=== PATIENT | male | born 1950 | race Caucasian/White ===

== ENCOUNTER 2017-10-17 05:41 | Inpatient (IN) ==
[2017-10-17] MEDS ORDERED: Ketamine Inj 50 MG/5 ML Syringe IV.PUSH ONE (06:14)
[2017-10-17] MEDS ORDERED: fentaNYL Citrate Inj 250 MCG/5 ML Ampul ONE (06:15)
[2017-10-17] MEDS ORDERED: fentaNYL Citrate Inj 100 MCG/2 ML Ampul ONE (06:15)
[2017-10-17] MEDS ORDERED: Famotidine PF Inj 20 MG/2 ML Vial ONE (06:16)
[2017-10-17] MEDS ORDERED: Sodium Chlor 0.9% Inj 40 ML, Bupivacaine Liposo PF 1.3% Inj 20 ML P-ARTICULR SCH ×2 (06:30)
[2017-10-17] MEDS ORDERED: Chlorhexidine 4% Topical 120 APPLIC/120 ML Bottle TOPICAL SCH (06:30)
[2017-10-17] MEDS ORDERED: Bisacodyl 10 MG Supp RECTAL PRN (06:37)
[2017-10-17] MEDS ORDERED: Post-op Orders (for Pharmacy) OTHER STA (06:37)
[2017-10-17] MEDS ORDERED: HYDROmorphone PF Inj 2 MG/ML Vial IV.PUSH PRN (06:37)
[2017-10-17] MEDS ORDERED: Dexamethasone Inj 20 MG/5 ML Vial IV.PUSH ONE (06:39)
[2017-10-17] MEDS ORDERED: ceFAZolin 2 GM Premix Inj 2 GM/100 ML BAG IV.SIG ONE (06:47)
[2017-10-17] MEDS ORDERED: SODIUM CHLOR 0.9% IV.SIG SCH (07:00)
[2017-10-17] MEDS ORDERED: ceFAZolin 2 GM Premix Inj 2 GM/50 ML PIGGYBACK IV.SIG SCH (07:00)
[2017-10-17] MEDS ORDERED: Dexamethasone Inj 20 MG/5 ML Vial IV.PUSH SCH (07:00)
[2017-10-17] MEDS ORDERED: ceFAZolin Inj 2,000 MG in Sodium Chlor 0.9% Inj 100 ML IV.SIG SCH (07:00)
[2017-10-17] MEDS ORDERED: Vancomycin Inj 1,000 MG in Sodium Chlor 0.9% Inj 250 ML IV.SIG SCH (07:00)
[2017-10-17] MEDS ORDERED: Tranexamic Acid Inj 3,000 MG in Sodium Chlor 0.9% Inj 100 ML IV.SIG SCH (07:00)
[2017-10-17] MEDS ORDERED: TRANEXAMIC ACID IV.SIG SCH (07:00)
[2017-10-17] MEDS ORDERED: Chlorhexidine Gluconate 2% 1 Pack (2 Cloths) TOPICAL SCH (08:00)
[2017-10-17] MEDS ORDERED: Metoprolol Tartrate 25 MG Tablet PO SCH (08:00)
[2017-10-17] MEDS ORDERED: Sodium Chlor 0.9% Inj 500 ML IV.SIG SCH (08:00)
--- NOTE | 2017-10-17 10:07 | XR ---
EXAM DATE: 10/17/2017 10:01 AM EDT AGE/SEX: 67 years / Male INDICATIONS: Total right hip replacement. CLINICAL DATA: This is the patient's initial encounter. Patient reports that signs and symptoms have been present for 1 day and indicates a pain score of Nonresponsive. MEDICAL/SURGICAL HISTORY: Non-responsive. Non-responsive. COMPARISON: No prior exams available for comparison. FINDINGS: The patient is status post a total hip arthroplasty. Prosthesis is well-seated. Alignment is anatomic . A fracture is not appreciated. CONCLUSION: Anatomic alignment. Dayne Bustos MD FACR Electronically signed by: Dayne Bustos MD 10/17/2017 10:05 AM EDT
[2017-10-17] MEDS ORDERED: *morphine SULFATE 10 MG/ML PERIprocedure ONLY ONE (10:27)
[2017-10-17] MEDS ORDERED: *Meperidine Inj 25 MG/ML Vial PERIprocedural Use ONLY ONE (11:24)
[2017-10-17] MEDS ORDERED: Neostigmine Inj 5 MG/5 ML Syringe IV.PUSH ONE (12:00)
[2017-10-17] MEDS ORDERED: Glycopyrrolate Inj 1 MG/5 ML Syringe IV.PUSH ONE (12:00)
[2017-10-17] MEDS ORDERED: Lidocaine PF 1% Inj 5 ML Syringe INFILTRATN ONE (12:00)
[2017-10-17] MEDS ORDERED: Esmolol Bolus Inj 100 MG/10 ML Vial IV.PUSH ONE (12:00)
[2017-10-17] MEDS ORDERED: Phenylephrine/NS 1000 MCG/10ML Syringe IV.PUSH ONE (12:00)
--- NOTE | 2017-10-17 12:05 | MP ---
cc: Tacos Dove MD DATE OF OPERATION: 10/17/2017 PREOPERATIVE DIAGNOSIS: Right hip osteoarthritis. POSTOPERATIVE DIAGNOSIS: Right hip osteoarthritis. PROCEDURE PERFORMED: Right total hip arthroplasty. SURGEON: Tacos Dove MD MOBILE EQUIPMENT OPERATOR: MALINDA Muñoz. ANESTHESIA: General. ESTIMATED BLOOD LOSS: 200 mL COMPLICATIONS: None. IMPLANTS USED: DePuy Corail size 14 press-fit high offset femoral stem, size 58 solid Bryant Gription cup, size 58 mm highly cross-linked +4 high offset 10 degree liner, size 58 ceramic head, +12 neck. JUSTIFICATION: The patient is a 67-year-old male with a history of severe osteoarthritis involving the right hip joint. He has severe daily pain with standing, walking, ambulation, pain at rest. His pain interferes with activities of daily living, and he has failed greater than 3 months of nonoperative conservative treatment to include medication therapy, injections, ambulatory assist aids, home exercise program, activity modification, weight loss attempts. X-rays of the right hip reveal severe osteoarthritis with [id number] joint space narrowing, subchondral sclerosis, subchondral cyst, osteophyte formation, and subluxation. The patient was counseled on the risks, benefits, and alternatives to a total hip arthroplasty. The risks were discussed, which include but are not limited to anesthesia, bleeding, infection, damage to nerves and blood vessels, fracture, dislocation, leg length discrepancy, blood clots, pulmonary embolism, and even . The patient's pain is severe. He understood the benefits and the risks, and he wished to proceed with surgery. PROCEDURE IN DETAIL: Written consent was obtained. The patient was identified by name, taken to the operating room, and placed supine on the operating room table. General anesthesia was administered, as well as 2 grams of IV Ancef and 1 gram of IV vancomycin. The right hip and right lower extremity were prepped and draped using isopropyl alcohol, Hibiclens solution, and ChloraPrep solution. After a timeout was performed, a longitudinal incision was made over the anterior aspect of the right hip, the fascial layer was incised, and dissection was carried over the tensor fascia hardeep, beneath rectus femoris to allow exposure of the anterior hip capsule. Capsulotomy incision was performed. An oscillating saw was used to perform a femoral neck cut. The osteoarthritic femoral head and neck component was removed. A 10-blade scalpel was used to excise the labrum. Sequential reaming began at size 53 and was carried through to size 58. Subsequently, a solid Bryant 58 mm cup was implanted at approximately 45 degrees of abduction and 10 degrees of anteversion. There was good purchase and fixation after insertion of the cup. A screw hole eliminator was placed, followed by a neutral highly cross-linked polyethylene liner. The liner was then packed in place and tested for stability. Attention was turned to the femur where the capsule was released off the inner surface of the greater trochanter. The leg was externally rotated, extended, and adducted to allow for further exposure. A box-cutting osteotome was used to gain entrance into the intramedullary canal of the femur, followed by a canal finder and sequential broaching up to size 14. A calcar planer was used to plane the calcar. Trial head and neck combinations were evaluated, and with multiple trials including a high offset size 14 stem, the hip showed instability where the leg was externally rotated approximately 60 degrees and extended approximately 30 degrees. The hip wanted to sublux and dislocate along a superior and lateral direction. At this point, the broach was removed. Attention was turned back to the cup, where a drill hole was made in the cup, followed by a screw to remove the neutral liner. At this point, a +4 high offset 10 degree highly cross-linked polyethylene liner was implanted with the 10-degree lip placed along a superolateral direction to provide further stability. The new liner was then packed in place and tested for stability. At this point, trunk muscles were evaluated and there was improved stability with the size 14 stem, +12 neck. Fluoroscopic imaging showed appropriate implantation of the components with increased offset and stability was improved, where the leg could be externally rotated 60 degrees and extended down to approximately 55 degrees before the hip started to show signs of instability. Trunk muscles were evaluated. The hip was thoroughly irrigated with and antibiotic impregnated solution. Final components implanted and identical findings found upon clinical examination. At this point, the fascial layer was closed with #1 Vicryl suture, the subcutaneous layer with 2-0 Vicryl suture, and the skin was closed with Dermabond. Sterile dressings were applied. The patient tolerated the procedure well. No intraoperative complications noted. Gus Alexander, Physician Staffing Recruiter, Certified, was present during the procedure to include the patient positioning and the procedure itself. The medical necessity of a physician engineer third assistant was indicated in this case due to the complexity of the procedure. He assisted with appropriate manipulation of the leg and also retraction of muscle, tendon, bone, and neurovascular structures. He assisted with preparation of bone and also implantation of the prosthetic replacement. MD GALINDO Turk/[email or web address]/[email or web address] , 09:59 AM , 10:09 AM
--- NOTE | 2017-10-17 12:57 | XR ---
EXAM DATE: 10/17/2017 12:27 PM EDT AGE/SEX: 67 years / Male INDICATIONS: Post-op right hip. CLINICAL DATA: This is the patient's initial encounter. Patient reports that signs and symptoms have been present for 1 day and indicates a pain score of Nonresponsive. MEDICAL/SURGICAL HISTORY: None. . Left Hip Replacement. COMPARISON: [facility] [place] [place] ONLY, 10/06/2011. . FINDINGS: Stable left hip arthroplasty in place. Interval placement of right hip arthroplasty. Arthroplasty com ponents are in anatomic alignment and are intact. No significant bony fracture. Remainder of exam is unchanged. CONCLUSION: 1. Status post right hip arthroplasty in anatomic alignment without acute fracture. Electronically signed by: Rico Kaur MD 10/17/2017 12:55 PM EDT
[2017-10-17] MEDS: Levothyroxine 150 MCG Tablet PO SCH (13:29)
[2017-10-17] MEDS: Multivitamin/Minerals Therapeutic Tablet PO SCH ×2 (13:29→21:42)
[2017-10-17] MEDS: ceFAZolin Inj 2,000 MG in Sodium Chlor 0.9% Inj 100 ML IV.SIG SCH ×2 (13:29→23:07)
[2017-10-17] MEDS: Senna/Docusate Sodium 8.6/50 MG Tablet PO SCH ×2 (13:29→21:42)
--- NOTE | 2017-10-17 17:40 | P.CON ---
History of Present Illness Service: [facility] Consult date: 10/17/17 Requesting Physician: Tacos Dove Reason for Consult: Medical management Primary Care Provider: Artur Loyd History of Present Illness: This is a pleasant 67-year-old white male with significant past medical history of osteoarthritis, hypertension, hyperlipidemia. He has prior history of left total hip replacement. Patient was admitted for elective surgery and underwent right total hip arthroplasty. Patient tolerated procedure well. He is now evaluated, he sitting up in a chair. Pain is well controlled. Denies any chest pain, shortness of breath, no recent fever, no chills. Received cardiac clearance before procedure, had EKG and echo that were both abnormal. Denies any history of coronary artery disease. Hospitalist services are requested for medical management. Review of Systems All other systems reviewed negative except as stated in HPI [facility] - History History Provided By: Patient - Medical History Medical History: Medical History (Last Reviewed 10/17/17 @ 17:33 by CHRISTINA Nguyen) Left rotator cuff tear arthropathy Arthritis BPH (benign prostatic hyperplasia) Hepatitis C High cholesterol Hypertension Injury of left thumb Right hip pain Right tibial fracture Seasonal allergies Thyroid disease Wears dentures - Surgical History Surgical History: Surgical History (Last Updated 10/17/17 @ 17:34 by CHRISTINA Nguyen) Hx of rotator cuff surgery History of total left hip replacement - Family History Family History: Family History (Last Updated 10/17/17 @ 17:34 by CHRISTINA Nguyen) Mother Family history of colon cancer Father CAD (coronary artery disease) - Tobacco History Second Hand Smoke Exposure: No Smoking Status: Former smoker Tobacco Type: Cigarettes - Alcohol History How Often Do You Have a Drink Containing Alcohol: 2 to 3 times a week - Substance Use History Substance History: No History of Abuse - Travel History Recent Travel in the [place] Within the Last 8 Weeks: No Recent Travel Out of the Country Within the Last 8 Weeks: No Medications and Allergies Active Medications: Active Medications Hydrocodone Bitart/Acetaminophen ([place] 7.5/325) 1 tab PO Q4H PRN PRN Reason: PAIN LESS THAN 5 ON SCALE Hydrocodone Bitart/Acetaminophen ([place]ka 7.5/325) 2 tab PO Q6H PRN PRN Reason: PAIN SCALE 5 TO 10 Last Admin: 10/17/17 15:18 Dose: 2 tab Al Hydroxide/Mg Hydroxide (Milk Of Magnesia Liq) 30 ml PO BID PRN PRN Reason: Mild Constipation Aspirin (Aspirin Chew) 81 mg PO BID [facility] Last Admin: 10/17/17 13:20 Dose: 81 mg Bisacodyl (Dulcolax Supp) 10 mg RECTAL DAILY PRN PRN Reason: SEVERE CONSITIPATION Chlorhexidine Gluconate (Hibiclens 4% Topical) 1 applicatio TOPICAL ONCE [facility] Stop: 10/21/17 06:29 Last Admin: 10/17/17 06:30 Dose: 1 applicatio Chlorhexidine Gluconate (Chlorhexidine 2% Cloth) 3 pack TOPICAL BAND EDGER [facility] Stop: 10/20/17 07:54 Sodium Chloride 40 ml/ (Bupivacaine Liposome 20 ml) 0 ml P-ARTICULR ONCE [facility] Last Admin: 10/17/17 09:06 Dose: 60 bag Dexamethasone Sodium Phosphate (Decadron Inj) 10 mg IV.PUSH [facility] Stop: 10/17/17 23:59 Last Admin: 10/17/17 06:42 Dose: 10 mg Diphenhydramine HCl (Benadryl) 25 mg PO Q6H PRN PRN Reason: ITCHING Hydromorphone HCl (Dilaudid Pf Inj) 1 mg IV.PUSH Q3H PRN PRN Reason: BREAKTHROUGH PAIN Vancomycin HCl 1,000 mg/ (Sodium Chloride) 250 mls @ 250 mls/hr IV.SIG [facility] EDGER [facility] Stop: 10/20/17 06:28 Last Infusion: 10/17/17 08:26 Dose: Infused Tranexamic Acid 3,000 mg/ (Sodium Chloride) 130 mls @ 0 mls/hr IV.SIG B[facility] EDGER [facility] Stop: 10/17/17 23:59 Last Infusion: 10/17/17 09:08 Dose: Infused Cefazolin Sodium 2,000 mg/ (Sodium Chloride) 100 mls @ 100 mls/hr IV.SIG B[facility] EDGER [facility] Stop: 10/21/17 06:59 Last Infusion: 10/17/17 15:17 Dose: 100 mls/hr Cefazolin Sodium 2,000 mg/ (Sodium Chloride) 120 mls @ 240 mls/hr IV.SIG Q6H [facility] Stop: 10/18/17 01:29 Last Infusion: 10/17/17 15:04 Dose: 240 mls/hr Lactated Ringer's (Lr 1000 Ml Inj) 1,000 mls @ 80 mls/hr IV.CONT .[id number] [facility] Last Admin: 10/17/17 10:15 Dose: 80 mls/hr Lactated Ringer's (Lr 1000 Ml Inj) 1,000 mls @ 30 mls/hr IV.SIG .Q24H [facility] Stop: 10/20/17 07:54 Last Admin: 10/17/17 06:30 Dose: 30 mls/hr Sodium Chloride (Ns Inj) 500 mls @ 30 mls/hr IV.SIG .Q10H [facility] Stop: 10/20/17 07:54 Levothyroxine Sodium (Synthroid) 150 mcg PO DAILY [facility] Last Admin: 10/17/17 13:29 Dose: Not Given Losartan Potassium (Cozaar) 50 mg PO DAILY [facility] Last Admin: 10/17/17 13:28 Dose: Not Given Metoprolol Tartrate (Lopressor) 25 mg PO BAND EDGER [facility] Stop: 10/20/17 07:54 Miscellaneous Information ([facility] Information) 1 each OTHER UNSCH PRN PRN Reason: SEE LABEL COMMENTS Stop: 10/18/17 10:13 Multivitamins/Minerals (Theragran-M) 1 tab PO BID [facility] Stop: 12/16/17 08:59 Last Admin: 10/17/17 13:29 Dose: Not Given Ondansetron HCl (Zofran Inj) 4 mg IV.PUSH Q6H PRN PRN Reason: NAUSEA OR VOMITING Povidone Iodine (Betadine 7.5% Scrub) 1 applicatio TOPICAL ONCE [facility] Stop: 10/21/17 06:59 Last Admin: 10/17/17 06:45 Dose: 1 applicatio Povidone Iodine (Betadine 5% Antisepsis Kit) 1 applicatio EACH NARE B[facility] EDGER [facility] Stop: 10/20/17 07:54 Pravastatin Sodium (Pravachol) 40 mg PO DAILY [facility] Last Admin: 10/17/17 13:29 Dose: Not Given Senna/Docusate Sodium (Mona-Colace) 1 tab PO BID [facility] Last Admin: 10/17/17 13:29 Dose: Not Given Sennosides (Senokot) 17.2 mg PO BID PRN PRN Reason: Moderate Constipation Sodium Chloride (Ns Flush) 2 ml IV.FLUSH BID [facility] Last Admin: 10/17/17 13:28 Dose: Not Given Sodium Chloride (Ns Flush) 2 ml IV.FLUSH PRN PRN PRN Reason: FLUSH AFTER USING IV ACCESS Tamsulosin HCl (Flomax) 0.4 mg PO BID [facility] Last Admin: 10/17/17 13:28 Dose: Not Given Zolpidem Tartrate (Ambien) 5 mg PO HS PRN PRN Reason: INSOMNIA Allergies Allergy/AdvReac Type Severity Reaction Status Date / Time strawberry Allergy Rash Verified 10/17/17 06:58 cortisone AdvReac Severe Rash Verified 10/17/17 06:58 Home Medications Medication Instructions Recorded Confirmed Type fluticasone 1 spray INTRANASAL DAILY 10/03/17 10/17/17 History hydrocodone-acetaminophen 1 tab PO Q4-6H PRN 10/03/17 10/17/17 History levothyroxine [Synthroid] 150 mcg PO DAILY 10/03/17 10/17/17 History pravastatin 40 mg PO DAILY 10/03/17 10/17/17 History tamsulosin 0.4 mg PO BID 10/03/17 10/17/17 History losartan 50 mg PO DAILY 10/17/17 10/17/17 History Physical Exam Vital signs: Vital Signs 10/17/17 06:36 10/17/17 10:15 10/17/17 10:30 Temperature 97.2 F L 98.7 F Pulse Rate 73 96 H 84 Respiratory Rate 18 12 17 Blood Pressure 139/80 93/51 L 125/67 Pulse Oximetry 97 97 99 10/17/17 10:45 10/17/17 11:00 10/17/17 11:15 Temperature Pulse Rate 82 83 80 Respiratory Rate 20 16 15 Blood Pressure 115/59 L 155/55 H 106/58 L Pulse Oximetry 98 96 98 10/17/17 11:30 10/17/17 12:00 10/17/17 13:00 Temperature 97.9 F Pulse Rate 88 83 88 Respiratory Rate 15 12 18 Blood Pressure 112/64 118/62 117/66 Pulse Oximetry 97 98 97 10/17/17 14:05 10/17/17 15:29 10/17/17 16:00 Temperature 97.3 F L 97.4 F L Pulse Rate 95 H 95 H Respiratory Rate 16 16 Blood Pressure 105/57 L 105/57 L Pulse Oximetry 96 94 L 96 Intake & Output 10/16/17 10/17/17 10/17/17 18:59 06:59 18:59 Intake Total 3222.29 / 3222.29 Output Total 700 / 700 Balance 2522.29 / 2522.29 Weight 148.6 kg Intake: IV 622.29 / 622.29 Cyklokapron Inj 3,000 MG In NS 252.29 / 252.29 Inj 100 ML @ As Directed IV.SIG [facility]GER [facility] Rx#:[id number] Vancomycin Inj 1,000 MG In NS 250 / 250 Inj 250 ML @ 250 mls/hr IV.SIG B[facility] EDGER [facility] Rx#:[id number] Ancef 2 GM Premix Inj 2 gm In 100 / 100 100 ml @ 0 mls/hr IV.SIG .[facility] Rx#:[id number] Ancef Inj 2,000 MG In NS Inj 0 / 0 100 ML @ 100 mls/hr IV.SIG B[facility] EDGER [facility] Rx#:[id number] Ancef Inj 2,000 MG In NS Inj 20 / 20 100 ML @ 240 mls/hr IV.SIG Q6H [facility] Rx#:[id number] Anesthesia Amount 2600 / 2600 Output: Urine 400 / 400 Estimated Blood Loss 300 / 300 Other: # Voids 1 Weight On Admission 148.6 kg Narrative: GENERAL: Well-nourished, well-developed patient in no apparent distress. SKIN: Warm and dry. HEAD: Atraumatic. Normocephalic. EYES: Pupils equal and round. No scleral icterus. No injection or drainage. ENT: No nasal bleeding or discharge. Mucous membranes pink and moist. NECK: Trachea midline. No JVD. CARDIOVASCULAR: Regular rate and rhythm. RESPIRATORY: No accessory muscle use. Clear to auscultation. Breath sounds equal bilaterally. GASTROINTESTINAL: Abdomen soft, non-tender, nondistended. Hepatic and splenic margins not palpable. MUSCULOSKELETAL: Right hip with dressing intact. Intact sensation to the right foot, able to dorsiflex. Bilateral pedal pulses 2+. There is scarring deformity to her right tibia from previous surgery. NEUROLOGICAL: Awake and alert x 3. No obvious cranial nerve deficits. Motor grossly within normal limits. Five out of 5 muscle strength in the arms and legs. Normal speech. PSYCHIATRIC: Appropriate mood and affect; insight and judgment normal. Assessment and Plan - Assessment (1) Status post right hip replacement Code(s): Z96.641 - Presence of right artificial hip joint Status: Acute (2) Osteoarthritis Code(s): M19.90 - Unspecified osteoarthritis, unspecified site Status: Chronic (3) Hypertension Code(s): I10 - Essential (primary) hypertension Status: Chronic (4) Hyperlipidemia Code(s): E78.5 - Hyperlipidemia, unspecified Status: Chronic (5) BPH (benign prostatic hyperplasia) Code(s): N40.0 - Benign prostatic hyperplasia without lower urinary tract symptoms Status: Chronic - Plan 67-year-old male admitted for elective surgery, status post right total hip arthroplasty -Continue postoperative orthopedic care Continue with pain management Bowel regimen Aspirin and TISH hose for DVT prophylaxis Hypertension, well controlled Continue with Cozaar Hyperlipidemia Continue with pravastatin BPH Continue with Flomax -Monitor for urinary retention postop CBC and BMP in the morning Plan of care discussed with patient, RN and attending. Further management of the patient will be dependent on hospital course Thank you for this consultation (2) Osteoarthritis Qualifiers: Osteoarthritis location: hip Osteoarthritis type: unspecified Laterality: right Qualified Code(s): M16.11 - Unilateral primary osteoarthritis, right hip (3) Hypertension Qualifiers: Hypertension type: essential hypertension Qualified Code(s): I10 - Essential (primary) hypertension (4) Hyperlipidemia Qualifiers: Hyperlipidemia type: unspecified Qualified Code(s): E78.5 - Hyperlipidemia, unspecified (5) BPH (benign prostatic hyperplasia) Qualifiers: Lower urinary tract symptom presence: symptoms absent Qualified Code(s): N40.0 - Benign prostatic hyperplasia without lower urinary tract symptoms
[2017-10-17] MEDS ORDERED: Zolpidem Tartrate 5 MG Tablet PO PRN (21:00)
[2017-10-18] MEDS: ceFAZolin Inj 2,000 MG in Sodium Chlor 0.9% Inj 100 ML IV.SIG SCH (01:15)
[2017-10-18 06:23] LABS: Hematocrit 32.3 % (39.0-51.0); Hemoglobin 10.7 gm/dL (13.0-17.0); Mean Corpuscular Hemoglobin 30.8 pg (27.0-34.0); Mean Corpuscular Volume 93.1 fL (80.0-100.0); Mean Platelet Volume 8.6 fL (7.0-11.0); Platelet Count 168 th/mm3 (150-450); Red Blood Count 3.47 mil/mm3 (4.50-5.90); Red Cell Distribution Width 14.7 % (11.6-17.2); White Blood Count 7.1 th/mm3 (4.0-11.0)
[2017-10-18 06:53] LABS: Calcium 7.8 mg/dL (8.5-10.1); Carbon Dioxide 26.7 meq/L (21.0-32.0); Potassium 4.4 meq/L (3.5-5.1)
--- NOTE | 2017-10-18 07:18 | P.PNOP ---
Subjective Interval history: pain controlled. has been OOB. would like to go home. Physical Exam Vital signs: Vital Signs 10/17/17 10:15 10/17/17 10:30 10/17/17 10:45 Temperature 98.7 F Pulse Rate 96 H 84 82 Respiratory Rate 12 17 20 Blood Pressure 93/51 L 125/67 115/59 L Pulse Oximetry 97 99 98 10/17/17 11:00 10/17/17 11:15 10/17/17 11:30 Temperature Pulse Rate 83 80 88 Respiratory Rate 16 15 15 Blood Pressure 155/55 H 106/58 L 112/64 Pulse Oximetry 96 98 97 10/17/17 12:00 10/17/17 13:00 10/17/17 14:05 Temperature 97.9 F 97.3 F L Pulse Rate 83 88 95 H Respiratory Rate 12 18 16 Blood Pressure 118/62 117/66 105/57 L Pulse Oximetry 98 97 96 10/17/17 15:29 10/17/17 16:00 10/17/17 20:00 Temperature 97.4 F L 98.3 F Pulse Rate 95 H 83 Respiratory Rate 16 18 Blood Pressure 105/57 L 115/60 Pulse Oximetry 94 L 96 93 L Intake & Output 10/17/17 10/18/17 10/18/17 18:59 06:59 18:59 Intake Total 3322.29 / 3322.29 1170 / 1170 Output Total 700 / 700 1720 / 1720 Balance 2622.29 / 2622.29 -550 / -550 Intake: IV 722.29 / 722.29 100 / 100 Cyklokapron Inj 3,000 MG In NS 252.29 / 252.29 Inj 100 ML @ As Directed IV.SIG [facility] Rx#:[id number] Vancomycin Inj 1,000 MG In NS 250 / 250 Inj 250 ML @ 250 mls/hr IV.SIG [facility] Rx#:[id number] Ancef 2 GM Premix Inj 2 gm In 100 / 100 100 ml @ 0 mls/hr IV.SIG .[facility] Rx#:[id number] Ancef Inj 2,000 MG In NS Inj 0 / 0 0 / 0 100 ML @ 100 mls/hr IV.SIG [facility] Rx#:[id number] Ancef Inj 2,000 MG In NS Inj 120 / 120 100 / 100 100 ML @ 240 mls/hr IV.SIG Q6H [facility] Rx#:[id number] Oral 20 / 20 Oral Supplement 0 / 0 Tube Feeding 250 / 250 Anesthesia Amount 2600 / 2600 Other 800 / 800 Output: Urine 400 / 400 1700 / 1700 Emesis 20 / 20 Estimated Blood Loss 300 / 300 Other: # Voids 1 Narrative: in bed, nad dressing has mild bloody drainage on proximal portion ecchymosis R hip thigh soft neg homans nvi Results - Labs CBC & Chem 7: 10/18/17 05:14 10/18/17 05:14 Laboratory Results - last 24 hr 10/17/17 10/18/17 10/18/17 06:30 00:32 05:14 WBC RBC Hgb Hct MCV MCH MCHC RDW Plt Count MPV Sodium 140 Potassium 4.4 Chloride 104 Carbon Dioxide 26.7 Anion Gap 9 BUN 21 H Creatinine 0.92 Estimated GFR 83 L POC Glucose 111 H Random Glucose 120 H Calcium 7.8 L Blood Type A Positive Blood Type Recheck Required Antibody Screen Negative 10/18/17 05:14 WBC 7.1 RBC 3.47 L Hgb 10.7 L Hct 32.3 L MCV 93.1 MCH 30.8 MCHC 33.0 RDW 14.7 Plt Count 168 MPV 8.6 Sodium Potassium Chloride Carbon Dioxide Anion Gap BUN Creatinine Estimated GFR POC Glucose Random Glucose Calcium Blood Type Blood Type Recheck Antibody Screen - Imaging Impressions Hip X-Ray 10/17/17 00:00 CONCLUSION: Anatomic alignment. Dayne Bustos MD FACR Hip X-Ray 10/17/17 06:35 CONCLUSION: 1. Status post right hip arthroplasty in anatomic alignment without acute fracture. Assessment and Plan - Ortho Post Op Day # 1 - Assessment and Plan s/p R JUANIS - anterior approach wbat - anterior hip precautions ok to maintain dressing unless saturated asa 81 ice to thigh d/c planning home with hhc and pt - cleared today if does well in PT f/up dr. ray 2 weeks
--- NOTE | 2017-10-18 07:20 | P.DCO ---
- Physical Therapy Physical Therapy: Gait training, Safety evaluation, Transfer training, bed to chair Hip: Total hip, Protocol: Right Right Lower Extremity Weight Bearing: Weight bearing as tolerated - Nursing RN: 3 days/week x 2 weeks Nursing: Dressing changes Dressing changes: Daily dressing change - Certification Need for Home Health services: I have seen patient Aubrey Urbano on 10/18/17. My clinical findings support the need for the requested home health care services because: Need for Home Health Services: Limited ability to care for self, High risk of falls Homebound Certification: I certify that my clinical findings support that this patient is homebound because: Homebound Certification: Post-op weakness, Unsafe to leave home unassisted
[2017-10-18] MEDS: Multivitamin/Minerals Therapeutic Tablet PO SCH (08:25)
[2017-10-18] MEDS: Senna/Docusate Sodium 8.6/50 MG Tablet PO SCH (08:25)
[2017-10-18] MEDS: Levothyroxine 150 MCG Tablet PO SCH (08:28)
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
--- NOTE | 2017-11-02 15:06 | MD ---
cc: Tacos Dove MD DATE OF DISCHARGE: 10/18/2017 ADMITTING DIAGNOSIS: Severe degenerative osteoarthritis of right hip. DISCHARGE DIAGNOSES: Severe degenerative osteoarthritis of right hip. HISTORY OF PRESENT ILLNESS: Mr. Urbano is a 67-year-old male who has been a longstanding patient of Dr[facility]os D[facility]. Currently, he is being treated for severe and progressive right hip pain inhibiting activities of daily living. The patient states he has severe aching sensation with weightbearing activities. He has no alleviating factors, although in the past he tried medications, assistive devices, physical therapy and weight loss attempts without relief of symptoms. He does have x-ray evidence of severe degenerative changes of the right hip. The patient also has history of a well-positioned and well-functioning left total hip arthroplasty. While in the office the patient was counseled on his diagnosis and treatment options. Risk, benefits, indications, and of all discussed. The patient did elect to proceed with surgical intervention to include a right total hip arthroplasty. Date of surgery: 10/17/2017; right total hip arthroplasty, anterior approach. POSTOP: After surgery, the patient was admitted to [facility] where he received appropriate medical management, pain control, DVT prophylaxis, as well as physical therapy. DISCHARGE: Once being discharged from the hospital, patient is cleared to go home where he will receive home health care and home physical therapy. He is in stable condition. He may weight bear as tolerated. The patient has been instructed on wound care management. He has been provided prescriptions for pain control as well as DVT prophylaxis medication. The patient has been provided a followup appointment in approximately 2 weeks from his date of surgery. The patient has asked appropriate questions, which have been answered. The patient has been discharged. Dictated by MALINDA Padilla Tacos Dove MD [email or web address] , 12:09 PM , 12:15 PM
== END 2017-10-18 14:34 | disposition home health service (06) ==
LOC: HSDI 05:41 → N06 13:31
PROVIDERS: ADMIT Orthopaedic Surgery Sports Medicine; ATTEND Orthopaedic Surgery Sports Medicine